=== PATIENT | female | born 1950 | race Caucasian/White ===

== ENCOUNTER 2018-10-08 15:54 | Emergency (ER) | payer MEDICARE ==
[2018-10-08 16:12] VITALS: BP 114/73
[2018-10-08] MEDS ORDERED: NITROGLYCERIN 0.4 MG/TAB 25 TAB/BOTTLE SL PRN (16:44)
--- NOTE | 2018-10-08 16:47 | ER Document Report ---
ED Medical Screen (RME) - General Chief Complaint: Chest Pain Stated Complaint: CHEST PAIN, COUGH, BACK PAIN Time Seen by Provider: 10/08/18 16:41 Notes: Patient is a 68-year-old female that presents to the emergency department for chief complaint of chest pain and shortness of breath. Patient's been having on and off chest pain for the past week, with increased worsening of her breathing, worse with exertion, pain seems to be worse with exertion as well. Denies prior history of CAD but does have diabetes, hypertension, and COPD.. ROS: Other than noted above, the 12 point review of systems was reviewed with the patient and were negative, all pertinent findings are included in the HPI. PHYSICAL EXAMINATION: Vital signs reviewed. GENERAL: Elderly female, no acute distress. HEAD: Atraumatic, normocephalic. EYES: Pupils equal round extraocular movements intact, conjunctiva are normal. ENT: Nares patent NECK: Normal range of motion CV: Heart regular rate and rhythm LUNGS: No respiratory distress, diminished lung sounds, no wheezing, rhonchi or rales. Musculoskeletal: Normal range of motion NEUROLOGICAL: Normal speech PSYCH: Normal mood, normal affect. MDM: Patient seen and examined for rapid initial assessment. Vital signs reviewed. EKG reviewed, no STEMI. A comprehensive ED assessment and evaluation of the patient, analysis of test results and completion of the medical decision making process will be conducted by additional ED providers. *Note is created using voice recognition software and may contain spelling, syntax or grammatical errors. TRAVEL OUTSIDE OF THE [place] IN LAST 30 DAYS: No - Related Data Allergies/Adverse Reactions: atorvastatin calcium [From Lipitor] Allergy (Verified 10/06/11 11:06) Past Medical History - Past Medical History Cardiac Medical History: Reports: Hx Hypertension Denies: Hx Coronary Artery Disease, Hx Heart Attack Pulmonary Medical History: Denies: Hx Asthma, Hx Bronchitis, Hx COPD, Hx Pneumonia Neurological Medical History: Denies: Hx Cerebrovascular Accident, Hx Seizures Musculoskeltal Medical History: Reports Hx Arthritis Past Surgical History: Denies: Hx Hysterectomy, Hx Pacemaker - Immunizations Hx Diphtheria, Pertussis, Tetanus Vaccination: Yes Physical Exam - Vital signs Vitals: Temp Pulse Resp BP Pulse Ox 98.1 F 103 H 24 H 114/73 114 H 10/08/18 16:09 10/08/18 16:09 10/08/18 16:09 10/08/18 16:09 10/08/18 16:09 Course - Vital Signs Vital signs: Temp Pulse Resp BP Pulse Ox 98.1 F 103 H 24 H 114/73 114 H 10/08/18 16:09 10/08/18 16:09 10/08/18 16:09 10/08/18 16:09 10/08/18 16:09 Doctor's Discharge - Discharge Referrals: SHIREEN WALKER DO [Primary Care Provider] - Follow up as needed
[2018-10-08 17:27] LABS: ABSOLUTE BASOPHILS # (AUTO) 0.1 10^3/uL (0.0-0.2); ABSOLUTE EOSINOPHILS # (AUTO) 0.4 10^3/uL (0.0-0.6); ABSOLUTE MONOCYTES (AUTO) 1.5 10^3/uL (0.1-1.4); ABSOLUTE NEUT (AUTO) 5.1 10^3/uL (1.7-8.2); BASOPHILS % (AUTO) 1.2 % (0-2); EOSINOPHILS % (AUTO) 4.4 % (0-6); HEMATOCRIT 40.4 % (36.0-47.0); HEMOGLOBIN 14.1 g/dL (12.0-15.5); LYMPHOCYTES % (AUTO) 22.2 % (13-45); MEAN CORPUSCULAR HEMOGLOBIN 32.4 pg (27.0-33.4); MEAN CORPUSCULAR HGB CONC 34.8 g/dL (32.0-36.0); MEAN CORPUSCULAR VOLUME 93 fl (80-97); MONOCYTES % (AUTO) 16.4 % (3-13); PLATELET COUNT 270 10^3/uL (150-450); RED BLOOD COUNT 4.34 10^6/uL (3.72-5.28); RED CELL DISTRIBUTION WIDTH 14.8 % (11.5-14.0); SEGMENTED NEUTROPHILS % (AUTO) 55.8 % (42-78); TOTAL CELLS COUNTED % (AUTO) 100 %; WHITE BLOOD COUNT 9.1 10^3/uL (4.0-10.5)
--- NOTE | 2018-10-08 17:38 | RADIOLOGY REPORT (SQ) ---
EXAM DESCRIPTION: CHEST 2 VIEWS COMPLETED DATE/TIME: 10/08/2018 5:19 pm REASON FOR STUDY: chest pain, short of breatht COMPARISON: None. EXAM PARAMETERS: NUMBER OF VIEWS: two views TECHNIQUE: Digital Frontal and Lateral radiographic views of the chest acquired. RADIATION DOSE: NA LIMITATIONS: none FINDINGS: LUNGS AND PLEURA: There is a cavitary lesion with the appearance of a fluid level localizi ng to the superior aspect of the right lower lobe. The lungs are otherwise clear and evenly aerated. No pleural effusion. No pneumothorax. MEDIASTINUM AND HILAR STRUCTURES: No masses or contour abnormalities. HEART AND VASCULAR STRUCTURES: Heart normal size. No evidence for failure. BONES: No acute findings. HARDWARE: None in the chest. OTHER: No other significant finding. IMPRESSION: Right lower lobe cavitary lesion with apparent fluid level. Differential considerations include both infectious (abscess, mycobacterium, fungal, etc) and neoplastic (non-small cell lung ca ncer) etiologies. TECHNICAL DOCUMENTATION: JOB ID: [id number] [employer]- All Rights Reserved Reading location - IP/workstation name: [email or web address]
[2018-10-08 17:39] LABS: ALANINE AMINOTRANSFERASE 43 U/L (9-52); ALBUMIN 3.5 g/dL (3.5-5.0); ALKALINE PHOSPHATASE 157 U/L (38-126); ANION GAP 12 (5-19); ASPARTATE AMINO TRANSFERASE 62 U/L (14-36); BILIRUBIN,DIRECT 0.5 mg/dL (0.0-0.4); BILIRUBIN,TOTAL 0.9 mg/dL (0.2-1.3); BLOOD UREA NITROGEN 17 mg/dL (7-20); CALCIUM 9.5 mg/dL (8.4-10.2); CARBON DIOXIDE 25 mmol/L (22-30); CHLORIDE 102 mmol/L (98-107); GLUCOSE 150 mg/dL (75-110); POTASSIUM 4.4 mmol/L (3.6-5.0); SODIUM 139.2 mmol/L (137-145); TOTAL PROTEIN 7.3 g/dL (6.3-8.2)
--- NOTE | 2018-10-08 18:13 | ER Document Report ---
ED Respiratory Problem - General Mode of Arrival: Ambulatory Information source: Patient TRAVEL OUTSIDE OF THE [place] IN LAST 30 DAYS: No <ROLF CHIRINOS - Last Filed: 10/08/18 18:21> <MILI CALDERON - Last Filed: 10/08/18 22:01> - General Chief Complaint: Chest Pain Stated Complaint: CHEST PAIN, COUGH, BACK PAIN Time Seen by Provider: 10/08/18 16:41 Notes: 68-year-old female who presents to the emergency department today with complaints of a cough and shortness of breath. Patient has a history of COPD and is not on any home oxygen. Patient states she went to an urgent care prior to arrival here who told her she was "too complicated" and sent her here. Patient expresses that she has had this cough with associated shortness of breath for "quite some time" but does not give any specific timeline. (ROLF CHIRINOS) - Related Data Allergies/Adverse Reactions: atorvastatin calcium [From Lipitor] Allergy (Verified 10/08/18 16:50) Past Medical History - General Information source: Patient - Social History Smoking Status: Current Every Day Smoker Cigarette use (# per day): Yes Chew tobacco use (# tins/day): No Frequency of alcohol use: None Drug Abuse: None Lives with: Family Family History: Reviewed & Not Pertinent Patient has suicidal ideation: No Patient has homicidal ideation: No - Past Medical History Cardiac Medical History: Reports: Hx Hypertension Neurological Medical History: Reports: Hx Migraine Endocrine Medical History: Reports: Hx Diabetes Mellitus Type 2 GI Medical History: Reports: Hx Gastroesophageal Reflux Disease Musculoskeletal Medical History: Reports Hx Arthritis Past Surgical History: Reports: Hx Orthopedic Surgery - feet - Immunizations Hx Diphtheria, Pertussis, Tetanus Vaccination: Yes <ROLF CHIRINOS - Last Filed: 10/08/18 18:21> Review of Systems - Review of Systems Constitutional: No symptoms reported EENT: No symptoms reported Cardiovascular: No symptoms reported Respiratory: See HPI, Cough, Short of breath Gastrointestinal: No symptoms reported Genitourinary: No symptoms reported Female Genitourinary: No symptoms reported Musculoskeletal: No symptoms reported Skin: No symptoms reported Hematologic/Lymphatic: No symptoms reported Neurological/Psychological: No symptoms reported -: Yes All other systems reviewed and negative <ROLF CHIRINOS - Last Filed: 12/01/18 18:21> Physical Exam - Vital signs Interpretation: Normal - General General appearance: Alert In distress: None - HEENT Head: Normocephalic, Atraumatic Eyes: Normal Pupils: PERRL - Respiratory Respiratory status: No respiratory distress Chest status: Nontender Breath sounds: Other - Decreased R base Chest palpation: Normal - Cardiovascular Rhythm: Regular Heart sounds: Normal auscultation Murmur: No - Abdominal Inspection: Normal Distension: No distension Bowel sounds: Normal Tenderness: Nontender Organomegaly: No organomegaly - Back Back: Normal, Nontender - Extremities General upper extremity: Normal inspection, Nontender, Normal color, Normal ROM , Normal temperature General lower extremity: Normal inspection, Nontender, Normal color, Normal ROM , Normal temperature, Normal weight bearing. No: Mahendra's sign - Neurological Neuro grossly intact: Yes Cognition: Normal Orientation: AAOx4 Katey Coma Scale Eye Opening: Spontaneous [place]y Coma Scale Verbal: Oriented [place] Coma Scale Motor: Obeys Commands [place] Coma Scale Total: 15 Speech: Normal Motor strength normal: LUE, RUE, LLE, RLE Sensory: Normal - Psychological Associated symptoms: Normal affect, Normal mood - Skin Skin Temperature: Warm Skin Moisture: Dry Skin Color: Normal <MILI CALDERON - Last Filed: 10/08/18 22:01> - Vital signs Vitals: Temp Pulse Resp BP Pulse Ox 98.1 F 103 H 24 H 114/73 114 H 10/08/18 16:09 10/08/18 16:09 10/08/18 16:09 10/08/18 16:09 10/08/18 16:09 Course - Laboratory Result Diagrams: 10/08/18 17:03 10/08/18 17:03 <ROLF CHIRINOS - Last Filed: 10/08/18 18:21> - Laboratory Result Diagrams: 10/08/18 17:03 10/08/18 17:03 - Diagnostic Test Radiology reviewed: Reports reviewed <MILI CALDERON - Last Filed: 10/08/18 22:01> - Re-evaluation Re-evalutation: 10/08/18 18:44 Patient wants to leave AMA She is a 68-year-old female who comes in complaining of cough. Denies any difficulty breathing or chest pain. Patient has a history of smoking. I have explained to the patient that her chest x-ray is concerning for abscess or tumor. Patient states that she is hungry. Offered to feed her and have explained all the reasons that I want to do a CTA of her chest. Patient states that regardless of if she eats anything or not that she just wants to go home and she does not want a CAT scan. I have explained the risks of infection, tumor, possibility of blood clot with nursing staff present. Patient is going to sign out AGAINST MEDICAL ADVICE. She has been instructed that if at any time she would like to return for further workup or treatment of her symptoms, she is welcome to do so. States that she will follow-up with her doctor this week. She is also been given the number for oncology due to her concerning chest x-ray. No acute findings on blood work. Vitals are stable. Patient will be discharged home AGAINST MEDICAL ADVICE. (MILI CALDERON) - Vital Signs Vital signs: Temp Pulse Resp BP Pulse Ox 98.1 F 103 H 24 H 114/73 114 H 10/08/18 16:09 10/08/18 16:09 10/08/18 16:09 10/08/18 16:09 10/08/18 16:09 - Laboratory Laboratory results interpreted by me: 10/08/18 10/08/18 10/08/18 17:02 17:03 17:03 RDW 14.8 H Monocytes % 16.4 H Absolute Monocytes 1.5 H Glucose 150 H POC Glucose 142 H Direct Bilirubin 0.5 H AST 62 H Alkaline Phosphatase 157 H Discharge <ROLF CHIRINOS - Last Filed: 10/08/18 18:21> <MILI CALDERON - Last Filed: 10/08/18 22:01> - Discharge Clinical Impression: Cough Condition: Stable Disposition: AGAINST MEDICAL ADVICE Instructions: Growth or Mass, Pending Workup ([facility]), Pneumonia ([facility]) Additional Instructions: Your chest x-ray is concerning for an infection or possibly a tumor. A tumor can predispose you for a clot in your lungs. You have received refused the CAT scan and have decided to sign out AGAINST MEDICAL ADVICE today. You are welcome to return at any time for further workup of your symptoms. Please call your doctor for follow-up as soon as possible. Prescriptions: Levofloxacin [Levaquin 750 mg Tablet] 750 mg PO DAILY #7 tablet Referrals: SHIREEN WALKER DO [Primary Care Provider] - Follow up tomorrow OREN RAI MD [ACTIVE STAFF] - Follow up as needed Scribe Attestation: 10/08/18 22:00 I personally performed the services described in the documentation, reviewed and edited the documentation which was dictated to the scribe in my presence, and it accurately records my words and actions. (MILI CALDERON) Scribe Documentation - Scribe Written by Han:: Han Grimm, 10/08/2018 1830 acting as scribe for :: Sydni <ROLF CHIRINOS - Last Filed: 10/08/18 18:21>
--- NOTE | 2018-10-08 22:38 | EKG REPORT ---
SEVERITY:- BORDERLINE ECG - SINUS TACHYCARDIA CONSIDER ANTERIOR INFARCT : Confirmed by: Maurizio Bernabe MD 08-Oct-2018 22:38:16
== END 2018-10-08 19:07 | disposition left against medical advice (07) ==
LOC: ER 15:54
DX: J44.9 Chronic obstructive pulmonary disease, unspecified (principal); R05 Cough; R06.02 Shortness of breath; F17.210 Nicotine dependence, cigarettes, uncomplicated; I10 Essential (primary) hypertension; E11.9 Type 2 diabetes mellitus without complications; Z88.8 Allergy status to other drugs, medicaments and biological substances; Z53.20 Procedure and treatment not carried out because of patient's decision for unspecified reasons
CPT/HCPCS: 36415; 71046; 80053; 82962; 84484; 85025; 93005; 93010; 99285

== ENCOUNTER → 2019-05-16 | Outpatient (CLI) | payer MEDICARE, OTHER ==
--- NOTE | 2019-05-16 14:23 | RADIOLOGY REPORT (SQ) ---
EXAM DESCRIPTION: CT CHEST WITH COMPLETED DATE/TIME: 05/16/2019 10:08 am REASON FOR STUDY: C34.31 MALIGNANT NEOPLASM OF LOWER LOBE, RIGHT BRONCHUS OR LUNG C34.31 MALIGNANT NEOPLASM OF LOWER LOBE, RIGHT BRONCHUS OR L COMPARISON: Two-view chest 10/08/2018 TECHNIQUE: CT scan of the chest performed using helical scanning technique with dynamic intravenous contrast injection. Images reviewed with lung, soft tissue and bone windows. Reconstructed coronal and sagittal MPR and MIP images reviewed. All images stored on PACS. All CT scanners at this facility use dose modulation, iterative reconstruction, and/or weight based d osing when appropriate to reduce radiation dose to as low as reasonably achievable (ALARA). [facility]: Dose Right [facility]: CareDose [facility]: Dose Right [facility]: Teradose 4D [facility]: Bacterioscan CONTRAST TYPE AND DOSE: contrast/concentration: Isovue 350.00 mg/ml; Total Contrast Delivered: 80.0 ml; Total Saline Delivered: 55.0 ml RENAL FUNCTION: Creatinine 0.7 RADIATION DOSE: CT Rad equipment meets quality standard of care and radiation dose reduction techniq ues were employed. CTDIvol: 4.2 mGy. DLP: 148 mGy-cm. . LIMITATIONS: None. FINDINGS: LUNGS AND PLEURA: In the right lower lobe, a 2.6 cm AP x 2.8 cm transverse x 1.7 cm cranio caudad cavitary spiculated mass is present in the superior segment right lower lobe (was 5.6 cm in gr eatest diameter on chest x-ray 10/08/2018). Lungs are otherwise clear. No pleural effusion or pneumothorax. HILAR AND MEDIASTINAL STRUCTURES: No identified masses or abnormal nodes. HEART AND VASCULAR STRUCTURES: No aneurysm or dissection. No central pulmonary emboli. No pericardi al effusion. Minimal coronary artery calcification HARDWARE: None in the chest. UPPER ABDOMEN: There is a cirrhotic liver with nodular contour. Evidence of portal hypertension with recannulized umbilical vein and varices along the greater and lesser curvature of the stomach. THYROID AND OTHER SOFT TISSUES: No masses. No adenopathy. BONES: No significant finding. OTHER: No other significant finding. IMPRESSION: Persistent 2.6 x 2.8 x 1.7 cm spiculated cavitary mass in the superior segment right low er lobe. No hilar or mediastinal adenopathy. TECHNICAL DOCUMENTATION: JOB ID: [id number] Quality ID # [id number]: Final reports with documentation of one or more dose reduction techniques (e.g., Au tomated exposure control, adjustment of the mA and/or kV according to patient size, use of iterative reconstruction technique) 2010 [employer]- All Rights Reserved Reading location - IP/workstation name: [email or web address]-
== END ==
LOC: RAD 09:05
PROVIDERS: ATTEND Physician Assistant Medical
DX: C34.31 Malignant neoplasm of lower lobe, right bronchus or lung (principal)
CPT/HCPCS: 71260; 82565